=== PATIENT | female | born 1960 | race Caucasian/White ===

== ENCOUNTER 2025-07-02 10:29 | Outpatient (CLI) | payer BC, SELFPAY ==
--- NOTE | 2025-07-22 12:35 | W.PM.SLEEP ---
Sleep Study Details Details Interpreting Provider: Babs Date of Sleep Study: 07/02/25 Sleep Study Details: STUDY TYPE:? Home unattended ? BMI:? 28.3 ORDERING PROVIDER:? Babs INDICATION:? Concern for sleep apnea ? SLEEP SUMMARY:? 449 minutes monitored RESPIRATORY SUMMARY:? AHI 7.3 per rule 1A Low oxygen 85 2.2% of study oxygen less than 90% Snoring 97.9% PERIODIC LIMB MOVEMENTS OF SLEEP:? Not recorded CARDIAC:? Range 52-75, mean 58.4 beats per minute IMPRESSION:? Mild obstructive sleep apnea RECOMMENDATION: Treatment options include CPAP or dental appliance.
== END 2025-07-02 10:30 | disposition home or self-care (01) ==
PROVIDERS: PCP Family Medicine; Visit Provider Otolaryngology
DX: G47.33 Obstructive sleep apnea (adult) (pediatric) (principal)
CPT/HCPCS: 95806

== ENCOUNTER 2025-07-31 12:43 | Outpatient (CLI) | payer BC, SELFPAY ==
--- NOTE | 2025-07-31 13:00 | CRLHL7_ITS ---
For Patients: As a result of the Century Cures Act, medical imaging exams and procedure reports are released immediately into your electronic medical record. You may view this report before your referring provider. If you have questions, please contact your health care provider. Indication: Pulsatile tinnitus. Technique: [id number] MRA images of the head. Axial diffusion imaging of the brain. Comparison: None. Findings: The internal carotid, middle cerebral, and anterior cerebral arteries are widely patent. The vertebral, basilar, and posterior cerebral arteries are widely patent. Inferiorly directed 2 mm outpouching arising from the right supraclinoid internal carotid artery (series 4, image 117). No diffusion restriction to suggest acute infarction. Impression: 1. 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 Recommend consultation with the neurointerventional radiology service at [facility] for further management. This can be arranged by calling [phone]. 2. No acute infarction. Dictated by Demarcus Hallman MD @ 07/31/2025 2:02:51 PM (Electronically Signed)
--- NOTE | 2025-07-31 14:00 | CRLHL7_ITS ---
For Patients: As a result of the Century Cures Act, medical imaging exams and procedure reports are released immediately into your electronic medical record. You may view this report before your referring provider. If you have questions, please contact your health care provider. CLINICAL HISTORY: Pulsatile tinnitus, unspecified ear. TECHNIQUE: The carotid circulations and the vertebral arteries in the neck were examined with ordoñez-scale ultrasound, color-flow and Doppler spectral analysis. Degrees of stenosis were determined using SRU 2002 Consensus Panel Criteria. FINDINGS: Sonographic images demonstrate no evidence of atherosclerotic plaque formation or suspicious soft tissue mass. There was antegrade blood flow demonstrated within the vertebral arteries and the subclavian arteries demonstrated a normal triphasic waveform. The spectral Doppler tracings of the common carotid, internal and external carotid arteries demonstrate no abnormal turbulence or spectral broadening. There was no significant elevation of peak systolic blood flow which would indicate a hemodynamically-significant stenosis by SRU criteria. The ICA/CCA peak systolic velocity ratio measures 0.9 on the right and 0.9 on the left. IMPRESSION: Normal carotid ultrasound. Dictated by Sherif Hoang MD @ 08/01/2025 6:25:41 AM (Electronically Signed)
== END 2025-07-31 12:44 | disposition home or self-care (01) ==
LOC: MRI 12:43
PROVIDERS: PCP Family Medicine; Visit Provider Otolaryngology
DX: H93.A9 Pulsatile tinnitus, unspecified ear (principal); I77.9 Disorder of arteries and arterioles, unspecified
CPT/HCPCS: 70544; 93880